=== PATIENT | female | born 1995 | race Hispanic/Latino ===

== ENCOUNTER 2019-06-22 01:55 | Emergency (ER) | payer SELFPAY ==
[2019-06-22] MEDS ORDERED: NA CHLORIDE 0.9% 1,000 ML ONE (02:10)
[2019-06-22] MEDS ORDERED: MORPHINE 4 MG/ML SYR ONE (02:10)
[2019-06-22] MEDS ORDERED: ONDANSETRON 4 MG/2 ML VIAL ONE (02:10)
[2019-06-22] MEDS ORDERED: TETANUS & DIPHTHERIA TOX,ADULT 0.5 ML VIAL ONE (02:26)
[2019-06-22] MEDS ORDERED: CEFAZOLIN/SWI 1gm 1 GM/10 ML SYR ONE (02:27)
[2019-06-22 02:47] LABS: MPV 8.2 fL (7.6-11.3); RBC Red Blood Cell Count 4.17 M/uL (3.86-4.86)
[2019-06-22 03:01] LABS: Potassium 3.5 mmol/L (3.5-5.1)
[2019-06-22] MEDS ORDERED: LIDOCAINE 1% MPF 30 ML VIAL ONE (04:19)
[2019-06-22] MEDS ORDERED: TRAMADOL HCL 50 MG TAB ONE (05:50)
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
[2019-06-22 07:16] VITALS: TEMP 98.5
[2019-06-22 07:20] VITALS: BP 111/66; O2SAT 100
--- NOTE | 2019-06-22 09:14 | RAD REPORT ---
EXAM DESCRIPTION: RAD - Tib Fib Right - 06/22/2019 3:23 am CLINICAL HISTORY: Right leg pain FINDINGS: No fracture is seen. Soft tissue laceration involves the medial aspect of the lower knee. Radiopaque foreign body is not seen. No dislocation
== END 2019-06-22 06:38 | disposition home or self-care (01) ==
LOC: EDBD 01:55 → ER 01:55
PROC: 0JQN0ZZ Repair Right Lower Leg Subcutaneous Tissue and Fascia, Open Approach (ICD-10-PCS; principal; 2019-06-22)
DX: S81.811A Laceration without foreign body, right lower leg, initial encounter (principal); V28.0XXA Motorcycle driver injured in noncollision transport accident in nontraffic accident, initial encounter; Y93.89 Activity, other specified; Y92.832 Beach as the place of occurrence of the external cause; Z23 Encounter for immunization; Z88.5 Allergy status to narcotic agent
CPT/HCPCS: 36415; 80048; 81025; 85027; 90471; 90714; 96361; 96365; 96375; 99284; J0690; J2405; J7030